=== PATIENT | male | born 1990 | race African-American/Black ===

== ENCOUNTER 2016-05-14 23:04 | Emergency (ER) | payer OTHER ==
[~2016-05-14] VITALS: Ht 195.6 cm; Wt 139.0 kg
[~2016-05-14 23:04] MED LIST: AMOX1TAB10 PO
[2016-05-14 23:25] VITALS: Ht 195.6 cm; Wt 139.0 kg
--- NOTE | 2016-05-15 00:43 | ERD ---
ER Documentation Chief Complaint Date/Time DATE: 05/15/16 TIME: 00:36 Chief Complaint pt reports r wrist and elbow pain after injury 2 weeks ago HPI Pleasant 26-year-old male patient reports while playing football on May 042016 he injured his right wrist and right elbow. Patient reports that he did not think anything of it developed some swelling, believed he had sprained his elbow has it in a sling. Patient reports now he is unable to flex or extend right elbow. He is pain with rotation of right wrist and ecchymosis and edema on the inside of the elbow. Patient reports pain is 1-2 without movement but increases to 9-10 on pain scale with movement. Patient denies any numbness or tingling to lower extremities, ROS All systems reviewed and are negative except as per history of present illness. Medications Home Meds Active Scripts Ibuprofen* (Motrin*) 600 Mg Tab, 600 MG PO Q6, #30 TAB Prov:LEANNA DO 05/15/16 Amoxicillin/Potassium Clav (Amox-Clav 875-125 mg Tablet) 875-125 mg Tab, 1 TAB PO BID for 7 Days, #14 TAB Prov:LAKESHA BARRETT PA-C 12/01/15 Allergies Allergies: Coded Allergies: No Known Allergy (Unverified , 12/01/15) PMhx/Soc History of Surgery: No Anesthesia Reaction: No Hx Neurological Disorder: No Hx Respiratory Disorders: No Hx Cardiac Disorders: No Hx Psychiatric Problems: No Hx Miscellaneous Medical Probl: No (PT. DENIES MEDICAL AND SURGICAL HISTORY.) Hx Alcohol Use: No Hx Substance Use: No Hx Tobacco Use: No Physical Exam Vitals Vital Signs Date Time Temp Pulse Resp B/P Pulse Ox O2 Delivery O2 Flow Rate FiO2 05/14/16 23:25 98.3 82 20 139/65 100 Vitals stable, nursing notes reviewed Physical Exam Const: No acute distress Head: Atraumatic Eyes: ENT: Normal External Ears, Nose and Mouth. Neck: Full range of motion..~Neck is supple Resp: Cardio: Abd: Skin: Ecchymosis noted right lateral inner arm Back: Ext: Upper Extremity - bilateral: Skin: No laceration, or evidence of external trauma Compartments: Soft Motor: Patient unable to extend or flex right elbow. Pain with rotation of right wrist. Negative snuffbox tenderness. Patient able to take fingertip to pad of thumb without deficit. Sensation: Intact shoulder/pinky/middle finger/thumb web space Bones: Tenderness at antecubital space. Radial and ulnar tenderness Snuffbox: Nontender Joints: No effusion Pulses/Perfusion: 2+ radial, Capillary refill < 2 seconds Neur: Awake and alert Psych: Normal Mood and Affect Results 24 hrs Current Medications Medications (Trade) Dose Ordered Sig/Rocio Route PRN Reason Start Time Stop Time Status Last Admin Dose Admin Ibuprofen (Motrin) 600 mg ONCE ONCE PO 05/15/16 01:00 05/15/16 01:01 DC 05/15/16 01:01 Procedures/MDM URE: Right wrist. CLINICAL INDICATION: Pain. TECHNIQUE: 4 views including PA, lateral and oblique views of the right wrist were performed. COMPARISON: None. FINDINGS: There is no fracture, dislocation or bone destruction. The joint spaces are within normal limits. Bone mineralization is within normal limits. There is no radiopaque foreign body or abnormal calcification. IMPRESSION: No evidence of fracture. .Rajendra Coulter MD, MD Date Time Electronically viewed and signed by .Rajendra Coulter MD, MD on 05/15/2016 01:24 .T/ CC: LEANNA DO PROCEDURE: Right elbow. CLINICAL INDICATION: Pain. TECHNIQUE: 3 views including AP, lateral and oblique views of the right elbow were obtained. COMPARISON: None. FINDINGS: There is a fracture of the radial neck without significant angulation or displacement. There is no dislocation. Bone mineralization is within normal limits. There is no radiopaque foreign body or abnormal calcification. There is mild spurring of the dorsal olecranon. IMPRESSION: Radial neck fracture. .Rajendra Coulter MD, MD Date Time Electronically viewed and signed by .Rajendra Coulter MD, MD on 05/15/2016 01:23 .T/ CC: LEANNA DO Splint Assessment: Neurovascularly intact post splint placement with good fit. This pleasant 26-year-old male patient reports injuring his right elbow and wrist while playing football May 04, 2016. Patient originally thought he had sprained his elbow. Was treating conservatively with sling, rest ice and over- the-counter analgesics. Patient noticed today ecchymosis developing on the inside of his arm. Patient has limited range of motion with full sensation without numbness or tingling, fracture is suspected; confirmed with x-ray. Patient has radial neck fracture. Patient placed in a posterior elbow splint with shoulder immobilization. Referred to [facility] orthopedic shiro. Right wrist normal no fracture or dislocation. I feel the patient is stable for discharge at this time. I have discussed results, examination findings, the treatment plan with the patient and family present prior to discharge. Strict indications for emergent reevaluation, side effects of medication were also discussed. All questions were answered. Patient verbalizes understanding and agrees with plan of care Departure Condition: Good Patient Instructions: Radial Head Fracture Referrals: [facility] Additional Instructions: Thank you for for coming to [facility] for your care today. Please ask your nurse or provider if you have questions about your care today and do not leave until all your questions have been answered. Please use any medications given as directed and follow-up with your doctor (or the doctor you were referred to) in the next 2-3 days. If you do not have a primary care doctor you may follow up at the [facility] (listed below). You may also use motrin and tylenol as needed for fever and/or pain unless instructed otherwise by your provider or nurse. Indications for more urgent follow-up have been discussed, but you may return to the Emergency Department at ANY time for any worrisome or worsening symptoms. If you have abdominal pain, please know that no test or exam you received is perfect and you should follow up within 8 hours for continued pain. If you had any imaging studies today, such as an X-Ray or CT Scan, these studies will be reviewed later by a radiologist. You will be called if there are important findings that were not identified today, so make sure the contact information you provided at registration is correct. If you received any narcotic pain control medicine today, such as Vicodin, Morphine or Dilaudid, your coordination and judgment may be affected for a number of hours. Please do not drive or operate heavy machinery, and you may want someone to assist you at home. If you were given a prescription for narcotic medication, be aware that it is very addictive- use sparingly and only if necessary. LEANNA DO May 15, 2016 00:43
[2016-05-15] MEDS ORDERED: IBUPROFEN 600 MG TAB PO ONE (01:00)
--- NOTE | 2016-05-15 01:24 | RADRPT ---
PROCEDURE: Right wrist. CLINICAL INDICATION: Pain. TECHNIQUE: 4 views including PA, lateral and oblique views of the right wrist were performed. COMPARISON: None. FINDINGS: There is no fracture, dislocation or bone destruction. The joint spaces are within normal limits. Bone mineralization is within normal limits. There is no radiopaque foreign body or abnormal calcif ication. IMPRESSION: No evidence of fracture. .Rajendra Coulter MD, MD Date Time Electronically viewed and signed by .Rajendra Coulter MD, on 05/15/2016 01:24 .T/
--- NOTE | 2016-05-15 01:24 | RADRPT ---
PROCEDURE: Right elbow. CLINICAL INDICATION: Pain. TECHNIQUE: 3 views including AP, lateral and oblique views of the right elbow were obtained. COMPARISON: None. FINDINGS: There is a fracture of the radial neck without significant angulation or displacement. There is no dislocation. Bone mineralization is within normal limits. There is no radiopaque foreign body or a bnormal calcification. There is mild spurring of the dorsal olecranon. IMPRESSION: Radial neck fracture. .Rajendra Coulter MD, Date Time Electronically viewed and signed by .Rajendra Coulter MD, on 05/15/2016 01:23 .T/
[2016-05-15] MEDS ORDERED: IBUP-1542 PO (02:47)
[2016-05-15 04:03] VITALS: BP 128/71; PULSE 81; TEMP 98.3
== END 2016-05-15 04:04 | disposition home or self-care (01) ==
LOC: FTE 23:04
DX: S52.121A Displaced fracture of head of right radius, initial encounter for closed fracture (principal); X50.9XXA Other and unspecified overexertion or strenuous movements or postures, initial encounter; Y92.9 Unspecified place or not applicable